=== PATIENT | male | born 1970 | race Caucasian/White ===

== ENCOUNTER 2020-01-10 18:34 | Emergency (ER) | payer SELFPAY ==
--- NOTE | 2020-01-10 19:12 | EDM.PDOC ---
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 No fall or injury . He has had this in the past. No weakness or paresthesias. Right Leg Pain Score (Numeric/FACES): 8 - Related Data Allergies Allergy/AdvReac Type Severity Reaction Status Date / Time No Known Allergies Allergy Verified 01/10/20 18:58 Home Meds: Home Meds predniSONE [Prednisone] 50 mg PO DAILY #5 tablet 01/10/20 [Rx] Past Medical History Neurological History: Reports: Other (See Below) Other Neuro History: sciatica - Past Surgical History Musculoskeletal Surgical History: Reports: Knee Replacement Social & Family History - Family History Family Medical History: Noncontributory - Tobacco Use Smoking Status *Q: Current Every Day Smoker Years of Tobacco use: 15 Packs/Tins Daily: 1 - Caffeine Use Caffeine Use: Reports: Soda - Recreational Drug Use Recreational Drug Use: No Review of Systems - Review of Systems Review Of Systems: See Below Constitutional: Denies: Chills, Fever Mouth/Throat: Reports: No Symptoms Respiratory: Denies: Shortness of Breath Cardiovascular: Denies: Chest Pain GI/Abdominal: Denies: Abdominal Pain, Nausea, Vomiting Genitourinary: Reports: No Symptoms Musculoskeletal: Reports: Back Pain, Leg Pain Skin: Reports: No Symptoms Neurological: Denies: Numbness, Tingling, Weakness ED EXAM, GENERAL - Physical Exam Exam: See Below General Appearance: Alert, Mild Distress Head: Atraumatic Neck: Supple Respiratory/Chest: No Respiratory Distress, Lungs Clear Cardiovascular: Regular Rate, Rhythm Back Exam: Other (Mild tenderness R low back). No: Paraspinal Tenderness, Vertebral Tenderness Extremities: Other (mild pain with SLR on the R). No: Increased Warmth, Redness Course - Vital Signs Last Recorded V/S: Last Vital Signs Temp 97.3 F 01/10/20 18:56 Pulse 110 H 01/10/20 18:56 Resp 19 01/10/20 18:56 BP 151/86 H 01/10/20 18:56 Pulse Ox 96 01/10/20 18:56 - Orders/Labs/Meds Meds: Medications Discontinued Medications Generic Name Dose Route Start Last Admin Trade Name May PRTegan Reason Stop Dose Admin Methylprednisolone Sodium Succinate 125 mg 01/10/20 19:18 01/10/20 19:27 Solu-Medrol IM 01/10/20 19:19 125 mg ONETIME ONE Administration Departure - Departure Time of Disposition: 19:23 Disposition: Home, Self-Care 01 Condition: Fair Clinical Impression: Back pain Qualifiers: Back pain location: low back pain Chronicity: acute Back pain laterality: right Sciatica presence: with sciatica - Discharge Information Prescriptions: predniSONE [Prednisone] 50 mg PO DAILY #5 tablet Referrals: PCP,Not In Area [Primary Care Provider] - Forms: ED Department Discharge Additional Instructions: rest back, no heavy lifting. Alternate ice and heat as needed. You have been given solumedrol which is a steroid IM while here in the ED. Continue prednisone 50 mg q AM for the next 5 days. You may take tylenol 1000 mg up to 4 times daily. You may take advil or ibuprofen 600 mg 2 to 3 times daily in between doses if needed for extra pain relief. Be sure to drink plenty of water when taking theses meds. The prednisone will tend to elevated you blood sugars so watch your carb intake very carefully. Follow up with your regular medical provider as needed if symptoms not resolving as expected. Sepsis Event Note - Evaluation Sepsis Screening Result: No Definite Risk - Focused Exam Vital Signs: Vital Signs Temp Pulse Resp BP Pulse Ox 01/10/20 18:56 97.3 F 110 H 19 151/86 H 96 Date Exam was Performed: 01/10/20 Time Exam was Performed: 19:30
[2020-01-10] MEDS ORDERED: methylPREDNISolone Sodium Succinate 125 MG/2 ML SDV IM ONE (19:18)
== END 2020-01-10 19:45 | disposition home or self-care (01) ==
LOC: JD.ED 18:34
DX: M54.41 Lumbago with sciatica, right side (principal); F17.210 Nicotine dependence, cigarettes, uncomplicated
CPT/HCPCS: 96372; 99283; J2930